=== PATIENT | female | born 1995 | race Two or more races ===

== ENCOUNTER 2025-07-06 10:35 | Day surgery (SDC) | payer MEDICAID, SELFPAY ==
[2025-07-05 10:01] VITALS: BMI 22.4
[2025-07-05 11:26] LABS: Basophils # (Auto) 0.1 Thou/mm3 (0.0-0.2); Basophils % (Auto) 1 % (0-2.5); Eosinophils # (Auto) 0.1 Thou/mm3 (0.0-0.5); Eosinophils % (Auto) 1 % (0-10); Hematocrit 40.2 % (36.0-46.0); Hemoglobin 13.8 g/dL (12.0-16.0); Immature Granulocytes Auto 0.01 Thou/mm3 (0.00-0.00); Lymphocytes # (Auto) 2.1 Thou/mm3 (1.0-4.8); Lymphocytes % (Auto) 38 % (10-50); Mean Corpuscular HGB Conc 34.3 g/dl (31.0-37.0); Mean Corpuscular Hemoglobin 30.5 pg (25.0-35.0); Mean Corpuscular Volume 89 fL (80-100); Monocytes # (Auto) 0.4 Thou/mm3 (0.0-0.8); Monocytes % (Auto) 8 % (0-12); Neutrophils # (Auto) 2.8 Thou/mm3 (1.8-7.7); Neutrophils % (Auto) 51 % (37-80); Nucleated Red Blood Cell # 0.00 Thou/mm3 (0.00-0.00); Nucleated Red Blood Cell % 0 /100 WBC (0); Platelet Count 295 Thou/mm3 (140-440); RDW Standard Deviation 41.0 fL (36.4-46.3); Red Blood Count 4.52 Miln/mm3 (4.00-5.20); White Blood Count 5.4 Thou/mm3 (3.6-11.0)
[2025-07-05 11:34] LABS: INR 1.0 (0.9-1.3); Partial Thromboplastin Time 29.7 Seconds (22.0-36.0); Prothrombin Time 10.3 Seconds (9.0-12.2)
[2025-07-05 11:39] LABS: Alanine Aminotransferase 22 U/L (10-49); Albumin, Serum 4.7 gm/dL (3.5-5.0); Albumin/Globulin Ratio 1.8 (1.2-2.2); Alkaline Phosphatase 72 U/L (46-116); Anion Gap 9 (7-16); Aspartate Amino Transferase 13 U/L (0-34); BUN/Creatinine Ratio 15 Ratio (12-20); Bilirubin,Total 1.1 mg/dL (0.3-1.2); Blood Urea Nitrogen 9 mg/dL (9-23); Calcium 9.5 mg/dL (8.3-10.6); Calcium (Corrected) 9.5 mg/dL (8.5-10.1); Carbon Dioxide 27.2 mMol/L (20.0-31.0); Chloride 105 mMol/L (98-107); Creatinine (Component) 0.6 mg/dL (0.6-1.3); Estimated Creatinine Clearance 120.5 mL/min (>60); Globulin 2.6 gm/dL (2.3-3.5); Glucose 97 mg/dL (74-106); Osmolality,Calculated 279 (275-295); Potassium 4.3 mMol/L (3.4-5.1); Sodium 141 mMol/L (136-145); Total Protein 7.3 gm/dL (5.7-8.2); eGFR > 60 See Note
[2025-07-05 11:43] LABS: HCG,Qualitative Serum Negative
[2025-07-06] VITALS (8 sets, daily range): BP systolic 113–128; BP diastolic 73–85; PULSE 85–106; RESP 12–21; TEMP 36.6–36.7; O2SAT 96–100; BMI 22.3
--- NOTE | 2025-07-06 13:35 | PD.SUROPNT ---
Date of Procedure 07/06/25 Pre Op Diagnosis Fistula in ano Post Op Diagnosis Same Procedure Fistulectomy transsphincteric Findings Patient was found to have fistula located about 3 cm away from the anus on the right buttock. Procedure Description After the patient was brought to the operating room endotracheal anesthesia given. Then she was kept in jackknife position and her buttocks were taped apart. 1 g of Ancef was given. Then I placed a Sprite speculum and opened up the anal canal. The fistula which was located about 3 cm from the anal verge on the right side was probed with metal probe and it opened into the anal canal below the dentate line. Then all the tissues were over the probe was excised using a 15 blade knife. Bleeding points were controlled with cautery. The hardened discolored tissue was removed and this is a transsphincteric fistula involving the external sphincter. After the bleeding points were controlled with cautery I placed Surgicel and 4 x 4 gauze dressing was applied. Patient tolerated procedure well. Anesthesia GETA Pathology / specimen None Estimated Blood Loss 30 Surgeon Michael Qureshi MD Surgical Staff Operation Date: 07/06/25 12:00 Case Staff Anesthesiologist: Quinn Patel
--- NOTE | 2025-07-06 13:41 | SUR.PHASEI ---
pt arrived to PACU via gurney drowsy but arouses to voice, breathing unlabored, dressing to right inner buttocks clean, dry, and intact, report from Priyanka VOSS and Dr Patel
--- NOTE | 2025-07-06 14:15 | SUR.PHASEI ---
pt tolerating oral fluids without difficulty swallowing or n/v
--- NOTE | 2025-07-06 14:56 | SUR.PHASEII ---
pt awake, alert, able to follow commands, breathing unlabored, dressing to right middle buttocks clean, dry, and intact, discharge instructions given using video binding stitcher Michael ROBERTS with mother present, all questions answered, pt able to dress with minimal help and ambulate to wheelchair with steady gait, pt discharged via wheelchair with all belongings and copies of discharge paperwork
== END 2025-07-06 14:56 | disposition home or self-care (01) ==
PROVIDERS: PCP Registered Nurse Pediatrics; Referring Provider Surgery; Visit Provider Surgery
PROC: (CPT 46280; principal; 2025-07-06 12:00)
DX: K60.30 Anal fistula, unspecified (principal)
CPT/HCPCS: 46280; 36415; 80053; 84703; 85025; 85610; 85730; A4649; C1876; J0131; J2250; J2704; J3010; J3490